=== PATIENT | male | born 1995 | race Caucasian/White ===

== ENCOUNTER 2020-02-25 14:02 | Emergency (ER) | payer MEDICAID, SELFPAY ==
[~2020-02-25] VITALS: Ht 182.9 cm; Wt 72.6 kg
[2020-02-25 14:05] VITALS: BP 142/92; Ht 182.9 cm; Wt 72.6 kg
== END 2020-02-25 16:10 | disposition home or self-care (01) ==
LOC: ED 14:02
DX: U07.1 COVID-19 (principal); F41.9 Anxiety disorder, unspecified
CPT/HCPCS: U0003